=== PATIENT | male | born 1990 | race Caucasian/White ===

== ENCOUNTER → 2020-11-11 | Day surgery (SDC) | payer OTHER ==
[~2020-11-11] VITALS: Ht 185.4 cm; Wt 108.9 kg
[~2020-11-11] MED LIST: ACETAMINOPHEN500 M1 PO; COLACE100 MG PO; OXY-IR 5MG5 MG PO
[2020-11-11 10:08] LABS: BILIRUBIN - TOTAL 0.5 mg/dL (0.2-1.0); GLOBULIN (CALCULATION) 3.9 g/dL; POTASSIUM 4.8 mmol/L (3.5-5.1); TOTAL PROTEIN 7.9 g/dL (6.4-8.2)
== END | disposition home or self-care (01) ==
LOC: FAS 08:37
PROVIDERS: Student in an Organized Health Care Education/Training Program
DX: K81.1 Chronic cholecystitis (principal); K82.8 Other specified diseases of gallbladder; K52.9 Noninfective gastroenteritis and colitis, unspecified
CPT/HCPCS: 36415; 80053; 82150; 83690; 93005; J1644; J1885; J2250; J2405; J2704; J2710; J3010; J7120